=== PATIENT | female | born 2000 | race Caucasian/White ===

== ENCOUNTER 2021-03-09 09:41 | Emergency (ER) | payer MEDICAID ==
[~2021-03-09] VITALS: Ht 167.6 cm; Wt 53.0 kg
[2021-03-09 09:45] VITALS: BP 112/78
== END 2021-03-09 10:45 ==
LOC: ER 09:41
DX: T19.2XXA Foreign body in vulva and vagina, initial encounter (principal); X58.XXXA Exposure to other specified factors, initial encounter; Y93.89 Activity, other specified; Y92.89 Other specified places as the place of occurrence of the external cause; Y99.8 Other external cause status; F41.9 Anxiety disorder, unspecified; Z98.890 Other specified postprocedural states
CPT/HCPCS: 81025; 87210; 99284